=== PATIENT | female | born 1975 | race Caucasian/White ===

== ENCOUNTER 2019-02-23 08:52 | Outpatient (CLI) | payer BC ==
--- NOTE | 2019-02-23 10:12 | CT ---
EXAM: CT Abdomen Pelvis W WO con PROVIDED CLINICAL HISTORY: Low back pain, abdominal pain, microhematuria COMPARISON: None FINDINGS: Evaluation is limited by beam hardening artifact from spinal instrumentation. The visualized lung bases are free of significant opacity. There is no evidence for urinary tract calculi or hydronephrosis. The delayed images demonstrate no e vidence for filling defect involving the renal collecting systems, opacified ureters or urinary bladder. There is a 1.1 cm hypodensity within the posterior segment of the right hepatic lobe demonstrating pe ripheral nodular enhancement and fill-in compatible with hemangioma. The solid abdominal organs demonstrate no significant abnormality. A simple cyst is seen involving the spleen. A hypodensity too small to characterize but likely reflecting a cyst or hemangioma is also seen involving the inferior aspects of the spleen. Gallstones are demonstrated. There is no bowel dilatation, inflammatory fat stranding, free fluid or regional lymph node enlargeme nt apparent. The osseous structures demonstrate no concerning lytic or blastic lesions. The regional major vascula r structures appear unremarkable. IMPRESSION: 1. An etiology for the patient's hematuria is not evident on this examination. 2. No acute abnormality is demonstrated to explain pain. 3. Cholelithiasis.
== END 2019-02-23 08:53 | disposition home or self-care (01) ==
LOC: BICCT 08:52
PROVIDERS: ATTEND Obstetrics & Gynecology
DX: R10.10 Upper abdominal pain, unspecified (principal); R11.0 Nausea; M54.5 Low back pain; R82.998 Other abnormal findings in urine; K80.20 Calculus of gallbladder without cholecystitis without obstruction; Z80.0 Family history of malignant neoplasm of digestive organs
CPT/HCPCS: 74178

== ENCOUNTER 2020-04-30 08:44 | Outpatient (CLI) | payer BC | END 2020-04-30 08:45 | disposition home or self-care (01) | LOC: BICMAMMO 08:44 | PROVIDERS: ATTEND Physician Assistant | DX: N63.10 Unspecified lump in the right breast, unspecified quadrant (principal) | CPT/HCPCS: G0279 ==